=== PATIENT | male | born 1965 | race Caucasian/White ===

== ENCOUNTER 2018-02-02 06:46 | Day surgery (SDC) | payer BC ==
[~2018-02-02] VITALS: Ht 193 cm; Wt 149.7 kg
[~2018-02-02 06:46] MED LIST: ACCUPRIL5 MG PO; CIALIS5 MG PO; LIPITOR10 M1 PO
[2018-02-02 10:23] VITALS: BP 128/55
== END 2018-02-02 10:20 | disposition home or self-care (01) | DRG 951 ==
LOC: ENDO 06:46 → PO 09:30 → ENDO 09:30
PROVIDERS: ATTEND Surgery
PROC: 0DBN8ZX Excision of Sigmoid Colon, Via Natural or Artificial Opening Endoscopic, Diagnostic (ICD-10-PCS; principal; 2018-02-02)
DX: Z12.11 Encounter for screening for malignant neoplasm of colon (principal); D12.7 Benign neoplasm of rectosigmoid junction; K63.5 Polyp of colon